=== PATIENT | male | born 1960 | race Caucasian/White ===

== ENCOUNTER 2016-10-09 18:05 | Emergency (ER) | payer BC ==
[~2016-10-09 18:05] MED LIST: ALEVE220 MG PO; ATEN50 PO; ATROVENT HFA17 MCG INH; ATROVENTUD INH; AUG875 PO; B1100 PO; C5; C5 PO; CORDARONE PO; COREG6 PO; DIOV80 PO; FLORASTOR250 MG PO; HALF81 PO; LEVOTHYROXIN150 MCG PO; LOVENOX80 SC; MAX25 PO; NEXIUM40 PO; NITROSTAT0.4 MG SL; NORCO1 TA1 PO; NORV10 PO; NTG150 SL; PENTOXIL400 MG PO; PEP20 PO; PLAVIX PO; TRENTAL400 PO; Z100 PO; Z300 PO; ZOCOR20 PO; [UNRECOGNIZED DRUG - OTHER] PO
[2016-10-09 18:56] LABS: BASOPHILS 0.5 %; BASOPHILS ABSOLUTE 0.02 10/3/uL (0.0-0.16); EOSINOPHILS ABSOLUTE 0.04 10/3/uL (0.0-0.53); ER CBC TAT 0 Hrs 11 Mins; HEMOGLOBIN 13.7 g/dL (13.6-17.8); IMMATURE GRANULOCYTES 0.5 %; IMMATURE GRANULOCYTES ABSOLUTE 0.02 10/3/uL (0.0-0.11); LYMPHOCYTES 8.2 %; LYMPHOCYTES ABSOLUTE 0.34 10/3/uL (0.67-4.30); MEAN CORPUSCULAR HEMOGLOB 34.9 pg (26.0-34.0); MEAN CORPUSCULAR VOLUME 97.2 fL (80-100); MEAN PLATELET VOLUME 9.4 fL (9.2-13.0); MONOCYTES 12.3 %; MONOCYTES ABSOLUTE 0.51 10/3/uL (0.21-1.20); NEUTROPHILS 77.5 %; NEUTROPHILS ABSOLUTE 3.22 10/3/uL (2.02-8.40); RBC DISTRIBUTION WIDTH 13.4 % (12.0-16.0); WHITE BLOOD CELLS 4.2 10/3/uL (4.5-10.5)
[2016-10-09 18:59] LABS: HEMATOCRIT 38.1 % (40.0-51.0); PLATELET COUNT 149 10/3/uL (150-400); RED CELL COUNT 3.92 10/6/uL (4.7-6.1)
[2016-10-09 19:00] LABS: MANUAL DIFF NO %
[2016-10-09 19:05] LABS: PARTIAL THROMBO TIME 30.3 SEC (22.5-37.2)
[2016-10-09 19:06] LABS: INTERNATIONAL NORMAL RATI 1.1 UNITS (-); PROTIME (NOT ORD) 14.1 SEC (12.0-14.5)
[2016-10-09 19:07] LABS: BUN (BLOOD UREA NITROGEN) 8 MG/DL (6-23); CALCIUM, SERUM 8.6 MG/DL (8.5-10.4); CHEST PAIN PROFILE TAT 0 Hrs 22 Mins; CHLORIDE, SERUM 91 MMOL/L (96-112); CO2 (CARBON DIOXIDE) 30 MMOL/L (24-34); CREATININE 0.64 MG/DL (0.70-1.30); GFR AFRICAN AMERICAN 125 ML/MIN (>=60); GFR NON AFRICAN AMERICAN 108 ML/MIN (>=60); GLUCOSE, SERUM 99 MG/DL (60-99); POTASSIUM, SERUM 3.9 MMOL/L (3.5-5.3); SODIUM, SERUM 128 MMOL/L (135-148); TROPONIN I <0.02 NG/ML (<0.05)
[2016-10-09 20:04] LABS: ALCOHOL < 10 MG/DL (0)
[2016-10-09] MEDS ORDERED: NEXIUM40 PO (20:38)
[2016-10-09] MEDS ORDERED: DIOV80 PO (20:38)
[2016-10-09] MEDS ORDERED: NITROSTAT0.4 MG SL (20:38)
[2016-10-09] MEDS ORDERED: Z300 PO (20:38)
[2016-10-09] MEDS ORDERED: COREG3 PO (20:39)
[2016-10-09] MEDS ORDERED: LEVOTHYROXIN150 MCG PO (20:39)
[2016-10-09] MEDS ORDERED: TRENTAL400 PO (20:39)
[2016-10-09] MEDS ORDERED: ATEN25 PO (20:39)
[2016-10-09] MEDS ORDERED: ZOCOR20 PO (20:40)
[2016-10-09] MEDS ORDERED: B12 PO (20:40)
[2016-10-09] MEDS ORDERED: ALEVE220 MG PO (20:40)
[2016-10-09] MEDS ORDERED: HALF81 PO (20:40)
== END 2016-10-09 23:05 | disposition home or self-care (01) ==
LOC: ER 18:05
PROVIDERS: Emergency Medicine
DX: I10 Essential (primary) hypertension (principal); F10.10 Alcohol abuse, uncomplicated; I48.91 Unspecified atrial fibrillation; I73.9 Peripheral vascular disease, unspecified; Z95.1 Presence of aortocoronary bypass graft; Z87.01 Personal history of pneumonia (recurrent); Z87.891 Personal history of nicotine dependence; Z85.850 Personal history of malignant neoplasm of thyroid; Z85.828 Personal history of other malignant neoplasm of skin; Z88.5 Allergy status to narcotic agent; Z88.8 Allergy status to other drugs, medicaments and biological substances; Z79.82 Long term (current) use of aspirin; Z79.899 Other long term (current) drug therapy
CPT/HCPCS: 71020; 80048; 83735; 84484; 85025; 85610; 85730; 93005; 96374; 99284; A9270-GY; G0480; J2405